=== PATIENT | female | born 1985 ===

== ENCOUNTER 2023-04-30 11:43 | Outpatient (CLI) | payer OTHER, SELFPAY ==
[2023-04-30 11:53] LABS: Abs Immature Grans 0.03 10^3/uL (0.0-0.06); Absolute Basophil Count 0.05 10^3/uL (0.0-0.2); Absolute Eosinophil Count 0.08 10^3/uL (0.0-0.7); Absolute Lymphocyte Count 1.81 10^3/uL (1.2-3.4); Absolute Monocyte Count 0.65 10^3/uL (0.1-0.8); Absolute Neutrophil Count 6.32 10^3/uL (1.2-6.7); Basophils % 0.6; Eosinophils % 0.9; HCT 36.6 % (36.0-46.0); HGB 12.4 g/dL (11.2-15.7); Immature Grans % 0.3; Lymphocytes % 20.2; MCH 30.2 pg (27.0-33.0); MCHC 33.9 % (32.0-36.0); MCV 89 fL (80-95); MPV 10.1 fL (8.0-11.0); Monocytes % 7.3; Neutrophils % 70.7; Platelet Count 363 10^3/uL (130-400); RDW 13.2 % (11.7-14.6); RDW-SD 43.3 fL; WBC 8.94 10^3/uL (4.4-10.8)
[2023-04-30 12:11] LABS: Hemoglobin A1C 5.4 % (<5.7)
[2023-04-30 12:27] LABS: ALT 20 U/L (14-59); AST 17 U/L (15-37); Albumin 3.8 g/dL (3.4-5.0); Alkaline Phosphatase 41 U/L (46-116); Anion Gap 8.5 mmol/L (3-11); BUN 12 mg/dL (7-18); Bilirubin, Total 0.5 mg/dL (0.2-1.0); CO2 27.5 mmol/L (21.0-32.0); Calcium 8.8 mg/dL (8.5-10.1); Chloride 105 mmol/L (98-107); Estimated GFR 75.34 (mL/min/1.73m2); Glucose 95 mg/dL (74-106); Potassium 3.9 mmol/L (3.5-5.1); Sodium 141 mmol/L (136-145); Total Protein 7.3 g/dL (6.4-8.2)
[2023-04-30 16:16] LABS: Vitamin D 25 Total 53.2 ng/mL (30-100)
[2023-04-30 16:19] LABS: Folate > 20.0 ng/mL (8.6-20.0); Vitamin B12 673 pg/mL (193-986)
== END 2023-04-30 11:44 | disposition home or self-care (01) ==
LOC: LBO 11:44
PROVIDERS: Visit Provider Naturopath
DX: E55.9 Vitamin D deficiency, unspecified (principal); R73.03 Prediabetes
CPT/HCPCS: 36415; 80053; 82306; 82607; 82746; 83036; 85025

== ENCOUNTER 2024-01-28 09:09 | Outpatient (CLI) | payer OTHER, SELFPAY ==
[2024-01-28 09:13] LABS: Abs Immature Grans 0.02 10^3/uL (0.0-0.06); Absolute Basophil Count 0.05 10^3/uL (0.0-0.2); Absolute Lymphocyte Count 1.93 10^3/uL (1.2-3.4); Absolute Monocyte Count 0.63 10^3/uL (0.1-0.8); Absolute Neutrophil Count 4.04 10^3/uL (1.2-6.7); Basophils % 0.7 %; Eosinophils % 4.3 %; HCT 38.4 % (36.0-46.0); HGB 12.9 g/dL (11.2-15.7); Immature Grans % 0.3 %; Lymphocytes % 27.7 %; MCH 30.6 pg (27.0-33.0); MCHC 33.6 % (32.0-36.0); MCV 91 fL (80-95); MPV 9.7 fL (8.0-11.0); Platelet Count 298 10^3/uL (130-400); RBC 4.22 10^6/uL (3.93-5.22); RDW 12.4 % (11.7-14.6); RDW-SD 41.3 fL; WBC 6.97 10^3/uL (4.4-10.8)
[2024-01-28 09:34] LABS: Hemoglobin A1C 5.4 % (<5.7)
[2024-01-28 09:51] LABS: ALT 22 U/L (14-59); AST 15 U/L (15-37); Alkaline Phosphatase 31 U/L (46-116); Anion Gap 6.5 mmol/L (3-11); BUN 16 mg/dL (7-18); Bilirubin, Total 0.64 mg/dL (0.2-1.0); CO2 28.5 mmol/L (21.0-32.0); CREATININE 0.9 mg/dL (0.55-1.02); Chloride 107 mmol/L (98-107); Estimated GFR 84.97 (mL/min/1.73m2); Folate 19.4 ng/mL (8.6-20.0); Glucose 99 mg/dL (74-106); Potassium 4.4 mmol/L (3.5-5.1); Sodium 142 mmol/L (136-145); Total Protein 7.5 g/dL (6.4-8.2); Vitamin B12 1141 pg/mL (193-986); Vitamin D 25 Total 47.9 ng/mL (30-100)
[2024-01-28 20:03] LABS: Homocysteine 8.7 umol/L (5.0-13.9)
== END 2024-01-28 09:10 | disposition home or self-care (01) ==
LOC: LBO 09:09
PROVIDERS: Visit Provider Naturopath
DX: R53.83 Other fatigue (principal); I10 Essential (primary) hypertension; E55.9 Vitamin D deficiency, unspecified
CPT/HCPCS: 36415; 80053; 82306; 83090; 82607; 82746; 83036; 85025

== ENCOUNTER 2024-07-28 11:00 | Outpatient (CLI) | payer OTHER, SELFPAY ==
[2024-07-28 09:43] LABS: HCT 36.2 % (36.0-46.0); HGB 12.5 g/dL (11.2-15.7); MCH 30.7 pg (27.0-33.0); MCHC 34.5 % (32.0-36.0); MCV 89 fL (80-95); Platelet Count 261 10^3/uL (130-400); RBC 4.07 10^6/uL (3.93-5.22); RDW 12.7 % (11.7-14.6); RDW-SD 41.2 fL
[2024-07-28 09:45] LABS: Bilirubin Negative (Negative); Blood Trace-intact (Negative); Clarity Clear (Clear); Glucose Negative (Negative); Ketones Negative (Negative); Leukocyte Esterase Negative (Negative); Nitrite Negative (Negative); Specific Gravity 1.015 (1.005-1.025); Urobilinogen 0.2 mg/dL (Up to 0.2)
[2024-07-28 09:52] LABS: WBC 0-2 HPF (0-5)
[2024-07-28 09:53] LABS: Bacteria Few HPF (Negative); C & S Indicated? No; Casts Negative LPF (Negative); Crystals Negative HPF (Negative); Epithelial Cells Few HPF (Negative); Mucus Negative (Negative)
[2024-07-28 10:00] LABS: Hemoglobin A1C 4.9 % (<5.7)
[2024-07-28 10:18] LABS: Iron 92 ug/dL (50-170); Total Iron Binding Capacity 408 ug/dL (250-450); Transferrin Sat 23 % (15-50)
[2024-07-28 10:25] LABS: ALT 21 U/L (14-59); AST 19 U/L (15-37); Albumin 3.3 g/dL (3.4-5.0); Alkaline Phosphatase 35 U/L (46-116); Anion Gap 6.4 mmol/L (3-11); BUN 14 mg/dL (7-18); Bilirubin, Total 0.3 mg/dL (0.2-1.0); CO2 24.6 mmol/L (21.0-32.0); CREATININE 0.6 mg/dL (0.55-1.02); Calcium 9.1 mg/dL (8.5-10.1); Chloride 104 mmol/L (98-107); Estimated GFR 119.23 (mL/min/1.73m2); Ferritin 30 ng/mL (8-252); Glucose 82 mg/dL (74-106); Potassium 4.1 mmol/L (3.5-5.1); Sodium 135 mmol/L (136-145); TSH 0.94 uIU/mL (0.36-3.74); Total Protein 7.2 g/dL (6.4-8.2); Vitamin B12 974 pg/mL (193-986)
[2024-07-28 10:29] LABS: Folate > 20.0 ng/mL (8.6-20.0)
[2024-07-28 10:49] LABS: FREE T4 0.98 ng/dL (0.76-1.46)
[2024-07-28 18:05] LABS: T3,Free 3.2 pg/mL (2.8-5.3)
== END 2024-07-28 11:01 | disposition home or self-care (01) ==
LOC: LBO 11:00
PROVIDERS: Visit Provider Naturopath
DX: E61.1 Iron deficiency (principal); Z34.92 Encounter for supervision of normal pregnancy, unspecified, second trimester
CPT/HCPCS: 36415; 80053; 85027; 81003; 81015; 82607; 82728; 82746; 83036; 83540; 83550; 84439; 84443; 84481

== ENCOUNTER 2024-08-25 11:39 | Outpatient (CLI) | payer OTHER, SELFPAY ==
[2024-08-25 11:48] LABS: HCT 34.3 % (36.0-46.0); HGB 11.6 g/dL (11.2-15.7); MCH 30.9 pg (27.0-33.0); MCHC 33.8 % (32.0-36.0); MCV 91 fL (80-95); MPV 9.9 fL (8.0-11.0); Platelet Count 244 10^3/uL (130-400); RBC 3.76 10^6/uL (3.93-5.22); RDW 12.4 % (11.7-14.6); RDW-SD 41.2 fL; WBC 8.32 10^3/uL (4.4-10.8)
[2024-08-25 11:52] LABS: Bilirubin Negative (Negative); Blood Negative (Negative); Clarity Clear (Clear); Glucose Negative (Negative); Ketones Trace mg/dL (Negative); Leukocyte Esterase Trace (Negative); Nitrite Negative (Negative); Specific Gravity 1.025 (1.005-1.025); Urobilinogen 0.2 mg/dL (Up to 0.2); pH 6.5 (5-8)
[2024-08-25 12:08] LABS: Epithelial Cells Few HPF (Negative); RBC Negative HPF (0-2)
[2024-08-25 12:09] LABS: Bacteria Few HPF (Negative); C & S Indicated? No; Casts Negative LPF (Negative); Crystals Negative HPF (Negative); Mucus Negative (Negative)
[2024-08-25 12:27] LABS: ALT 25 U/L (14-59); AST 18 U/L (15-37); Albumin 3.1 g/dL (3.4-5.0); Alkaline Phosphatase 41 U/L (46-116); Anion Gap 6.9 mmol/L (3-11); BUN 13 mg/dL (7-18); Bilirubin, Total 0.3 mg/dL (0.2-1.0); CO2 28.1 mmol/L (21.0-32.0); CREATININE 0.7 mg/dL (0.55-1.02); Calcium 8.7 mg/dL (8.5-10.1); Chloride 103 mmol/L (98-107); Estimated GFR 114.88 (mL/min/1.73m2); Ferritin 27 ng/mL (8-252); Glucose 90 mg/dL (74-106); Sodium 138 mmol/L (136-145); Total Protein 6.7 g/dL (6.4-8.2)
[2024-08-25 12:33] LABS: Iron 108 ug/dL (50-170); Total Iron Binding Capacity 403 ug/dL (250-450); Transferrin Sat 27 % (15-50)
== END 2024-08-25 11:40 | disposition home or self-care (01) ==
LOC: LBO 11:39
PROVIDERS: Visit Provider Naturopath
DX: E61.1 Iron deficiency (principal); R31.29 Other microscopic hematuria
CPT/HCPCS: 36415; 80053; 85027; 81003; 81015; 82728; 83540; 83550